=== PATIENT | male | born 1930 | race Caucasian/White ===

== ENCOUNTER → 2019-02-05 | Outpatient (CLI) | payer OTHER | LOC: SUPIMAGING 10:38 | PROVIDERS: ATTEND Family Medicine | DX: I48.91 Unspecified atrial fibrillation (principal); I25.10 Atherosclerotic heart disease of native coronary artery without angina pectoris; E78.2 Mixed hyperlipidemia; R06.02 Shortness of breath; I50.9 Heart failure, unspecified | CPT/HCPCS: 71046-PN ==